=== PATIENT | female | born 1945 | race African-American/Black ===

== ENCOUNTER → 2017-06-13 | Day surgery (SDC) | payer OTHER, MEDICARE ==
[2017-06-12 15:28] VITALS: BMI 26.9
[2017-06-13 10:58] VITALS: TEMP 97.5
[2017-06-13 11:51] VITALS: BP 115/46; PULSE 60
--- NOTE | 2017-06-14 16:07 | PATH ---
Surgical Pathology Report Patient Name: SHAMA CANELA [facility]. Rec. #: [id number] /Age/Gender: 1945 (Age: 72) / F Account: [id number] Location: [facility]-ENDOSCOPY Taken: 06/13/2017 Received: 06/13/2017 Reported: 06/14/2017 Physicians: Zaire Haq M.D. Specimen(s) Received BX ANASTOMOSIS Clinical History History of anal cancer Polyp of anastomosis Final Diagnosis COLON, ANASTOMOSIS, POLYP, BIOPSY: HYPERPLASTIC POLYP. Electronically Signed Carissa Pierce M.D. Gross Description Received in formalin, labeled "biopsy polyp at anastomosis" are 2 ghosh, irregular portions of soft tissue averaging 0.2 cm. in greatest dimension. The specimens are submitted in toto in one cassette. /06/13/2017 saudi06/13/2017
== END | disposition home or self-care (01) ==
LOC: JASU-ENDO 09:50
PROVIDERS: ATTEND Internal Medicine Gastroenterology
PROC: 0DBM8ZX Excision of Descending Colon, Via Natural or Artificial Opening Endoscopic, Diagnostic (ICD-10-PCS; principal; 2017-06-13 10:30)
DX: Z12.11 Encounter for screening for malignant neoplasm of colon (principal); Z85.048 Personal history of other malignant neoplasm of rectum, rectosigmoid junction, and anus; D12.4 Benign neoplasm of descending colon; Z98.0 Intestinal bypass and anastomosis status
CPT/HCPCS: 88305-TC